=== PATIENT | female | born 1995 | race Caucasian/White ===

== ENCOUNTER 2017-10-05 01:39 | Emergency (ER) | payer SELFPAY | END 2017-10-05 05:52 | disposition home or self-care (01) | LOC: FTE 01:39 | DX: Z77.098 Contact with and (suspected) exposure to other hazardous, chiefly nonmedicinal, chemicals (principal) | CPT/HCPCS: 99283 ==

== ENCOUNTER 2017-10-10 23:03 | Emergency (ER) | payer BC | END 2017-10-11 00:52 | disposition home or self-care (01) | LOC: FTE 23:03 | DX: J02.9 Acute pharyngitis, unspecified (principal); H57.8 Other specified disorders of eye and adnexa; Z87.891 Personal history of nicotine dependence | CPT/HCPCS: 99283 ==

== ENCOUNTER 2017-11-07 21:39 | Emergency (ER) | payer BC ==
[2017-11-07] MEDS ORDERED: LIDOCAINE/MYLANTA 40 ML BTL PO (23:00)
== END 2017-11-08 01:31 | disposition left against medical advice (07) ==
LOC: FTE 11-08 01:31
DX: R09.89 Other specified symptoms and signs involving the circulatory and respiratory systems (principal)
CPT/HCPCS: 99282

== ENCOUNTER 2018-05-13 13:25 | Emergency (ER) | payer BC ==
[2018-05-13] MEDS: TETRACAINE 0.5% 4 ML OPH LEFT EYE (13:50)
== END 2018-05-13 15:27 | disposition home or self-care (01) ==
LOC: FTE 13:25
DX: H57.12 Ocular pain, left eye (principal)
CPT/HCPCS: 99283